=== PATIENT | male | born 1985 | race Hispanic/Latino ===

== ENCOUNTER 2023-09-19 08:57 | Emergency (ER) | payer OTHER, SELFPAY ==
[2023-09-19] MEDS ORDERED: Amiodarone 150 MG/3 ML VIAL ONE (09:03)
[2023-09-19] MEDS ORDERED: Sodium Bicarb 50 MEQ/50 ML Abboject 8.4% SYRINGE ONE (09:03)
[2023-09-19] MEDS ORDERED: EPINEPHrine 1 MG/10 ML Abboject SYRINGE ONE (09:03)
[2023-09-19] MEDS ORDERED: Calcium Chloride 1 GM/10 ML Abboject SYRINGE ONE (09:03)
[2023-09-19] MEDS ORDERED: Atropine Sulfate 1 mg/10 ml Syringe ONE (09:03)
[2023-09-19] MEDS ORDERED: NOREPINEPHRINE 8 MG/250 ML-D5W 250 ML ONE (09:16)
[2023-09-19] MEDS ORDERED: Fentanyl CADD 100 ML IV SCH (09:30)
[2023-09-19 09:34] LABS: #Basophils 0.1 thou/uL (0.0-0.2); #Eosinphils 0.2 thou/uL (0.0-0.7); #Monocytes 1.3 thou/uL (0.11-0.59); #Neutrophils 6.6 thou/uL (1.40-6.50); %Basophils 0.3 % (0.0-1.0); %Lymphocytes 53.5 % (21.0-51.0); %Monocytes 7.2 % (0.0-10.0); %Neutrophils 37.5 % (42.0-75.0); Hemoglobin 15.9 g/dL (14.0-18.0); Mean Corpuscular HGB CONC 31.2 g/dL (32.0-36.0); Mean Corpuscular Hemoglobin 31.4 pg (27.0-31.0); Mean Corpuscular Volume 100.8 fl (78.0-98.0); Platelet Count 157 10x3/uL (130-400); RBC Distribution Width 12.5 % (11.5-14.5); Red Blood Cell (RBC) Count 5.06 mill/uL (4.70-6.10); White Blood Cell (WBC) Count 17.5 10x3/uL (4.8-10.8)
[2023-09-19] MEDS ORDERED: Tenecteplase 50 MG ONE (09:39)
[2023-09-19 09:56] LABS: Acetaminophen Less than 10 mcg/mL (10.0-30.0); Alcohol Less than 10.0 mg/dL (Less than 10); Lipase 69 U/L (8-78); Salicylate Less than 8.0 mg/dL (15.0-30.0)
[2023-09-19 09:58] LABS: ALT (SGPT) 176 U/L (8-55); AST (SGOT) 170 U/L (5-34); Albumin 3.3 g/dL (3.5-5.0); Alkaline Phosphatase 89 U/L (40-110); Anion Gap 24 mmol/L (10-20); BUN (Urea Nitrogen) 13 mg/dL (8.9-20.6); Bilirubin, Total 0.6 mg/dL (0.2-1.2); CK (CPK) 122 U/L (30-200); Calc. Creatinine Clearance 0 mL/min (70-130); Calcium 9.4 mg/dL (7.8-10.44); Carbon Dioxide 16 mmol/L (22-29); Chloride 112 mmol/L (98-107); Estimated GFR 48; Globulin 2.3 g/dL (2.4-3.5); Glucose 292 mg/dL (70-105); Potassium 3.8 mmol/L (3.5-5.1); Protein, Total 5.6 g/dL (6.0-8.3); Sodium 148 mmol/L (136-145)
[2023-09-19 10:06] LABS: Troponin I 0.053 ng/mL (< 0.028)
== END 2023-09-19 09:49 | disposition expired ==
LOC: ERS 08:57
DX: I46.9 Cardiac arrest, cause unspecified (principal)
CPT/HCPCS: 31500; 36416; 43762; 51702; 80053; 80307; 82550; 83690; 84484; 85025; 93005; 96374; 96375; 96376; J0171; J0282; J0461; J3010; J3101